=== PATIENT | male | born 1980 | race Caucasian/White ===

== ENCOUNTER 2016-06-30 19:55 | Emergency (ER) | payer BC ==
[~2016-06-30] VITALS: Ht 185.4 cm; Wt 91.7 kg
[~2016-06-30 19:55] MED LIST: CHANTIX1 MG PO; FIBER500 MG PO; FIORICET 50-301 EACH PO; FLEXERIL10 MG PO; LANSOPRAZOLE30 MG PO; LORTAB 5-325 M1 EACH PO; NAPROSYN500 MG PO; PHENERGAN-CODE120 ML PO; ZITHROMAX250 MG PO; ZOFRAN4 MG PO
[2016-06-30 20:54] LABS: HEMATOCRIT 41.4 % (38.0-50.0); MCH 30.6 PG (29.0-34.0); MCHC 34.8 G/DL (30.0-36.0); MCV 87.9 FL (86-99); MEAN PLAT.VOLUME 11.2 uM^3 (9.0-12.4); PLATELET COUNT 194 K/uL (156-360); RBC DIS.WIDTH-CV 12.5 % (11.8-14.6); RBC DIS.WIDTH-SD 40.7 % (39-53); RED BLOOD COUNT 4.71 M/uL (4.00-5.50); WHITE BLOOD COUNT 8.5 K/uL (4.1-10.2)
[2016-06-30 21:08] LABS: CHLORIDE 107 mEq/L (99-109); POTASSIUM 3.8 mEq/L (3.7-5.4); SODIUM 141 mEq/L (136-147)
[2016-06-30 21:10] LABS: GLUCOSE 96 mg/dL (70-99)
[2016-06-30 21:12] LABS: ANION GAP 11 MEQ/L (2-14); TOTAL BILIRUBIN 0.4 mg/dL (0.0-1.0)
[2016-06-30 21:14] LABS: ALKALINE PHOSPHATASE 94 IU/L (3-129); GFR ESTIMATE (CALCULATED) > 59 mL/min/
[2016-06-30 21:15] LABS: UREA NITROGEN (BUN) 9 mg/dL (9-23)
[2016-06-30 22:17] LABS: TROP-I INTERPRETATION NEGATIVE; TROPONIN-I < 0.01 ng/mL (0.0-0.30)
[2016-06-30 22:47] LABS: D-DIMER ELISA < 0.15 mg/L FEU (< 0.57)
[2016-06-30 23:15] LABS: TROP-I INTERPRETATION NEGATIVE; TROPONIN-I < 0.01 ng/mL (0.0-0.30)
[2016-07-01 00:04] VITALS: BP 147/82
[2016-07-02] MEDS ORDERED: FIBER TABS625 MG PO (23:21)
[2016-07-02] MEDS ORDERED: ADVIL,NUPRIN,M200 MG PO (23:22)
== END 2016-07-01 00:04 | disposition home or self-care (01) ==
LOC: EME 19:55
PROVIDERS: Emergency Medicine
DX: R07.9 Chest pain, unspecified (principal); K21.9 Gastro-esophageal reflux disease without esophagitis
CPT/HCPCS: 71020; 80053; 84484; 85027; 85379; 93005; 94640; 99281; 99285

== ENCOUNTER 2016-07-02 19:15 | Observation (INO) | payer BC ==
[~2016-07-02] VITALS: Ht 185.4 cm; Wt 91.6 kg
[2016-07-02 19:42] LABS: HEMATOCRIT 41.6 % (38.0-50.0); MCH 30.5 PG (29.0-34.0); MCHC 34.1 G/DL (30.0-36.0); MCV 89.5 FL (86-99); MEAN PLAT.VOLUME 11.3 uM^3 (9.0-12.4); PLATELET COUNT 185 K/uL (156-360); RBC DIS.WIDTH-CV 12.6 % (11.8-14.6); RBC DIS.WIDTH-SD 41.1 % (39-53); RED BLOOD COUNT 4.65 M/uL (4.00-5.50); WHITE BLOOD COUNT 7.2 K/uL (4.1-10.2)
[2016-07-02 19:53] LABS: CHLORIDE 107 mEq/L (99-109); POTASSIUM 3.6 mEq/L (3.7-5.4); SODIUM 141 mEq/L (136-147)
[2016-07-02 19:54] LABS: GLUCOSE 95 mg/dL (70-99)
[2016-07-02 19:56] LABS: ANION GAP 11 MEQ/L (2-14)
[2016-07-02 19:58] LABS: GFR ESTIMATE (CALCULATED) > 59 mL/min/
[2016-07-02 19:59] LABS: UREA NITROGEN (BUN) 9 mg/dL (9-23)
[2016-07-02 20:03] LABS: TROP-I INTERPRETATION NEGATIVE; TROPONIN-I < 0.01 ng/mL (0.0-0.30)
[2016-07-02] MEDS ORDERED: FIBER TABS625 MG PO (23:21)
[2016-07-02] MEDS ORDERED: ADVIL,NUPRIN,M200 MG PO (23:22)
[2016-07-03 01:10] VITALS: BP 118/82
[2016-07-03 04:13] LABS: TROP-I INTERPRETATION NEGATIVE; TROPONIN-I < 0.01 ng/mL (0.0-0.30)
[2016-07-03 04:29] VITALS: BP 117/72
[2016-07-03 04:41] LABS: HDL CHOLESTEROL 26 MG/DL (Desirable>=40); LDL CHOLESTEROL 46 mg/dL (Desirable<100); NON-HDL CHOLESTEROL 70 mg/dL (Desirable<160); TOTAL CHOLESTEROL 96 mg/dL (Desirable<200); TRIGLYCERIDES 120 MG/DL (Normal: <150)
[2016-07-03 09:40] VITALS: BP 121/83
[2016-07-03] MEDS ORDERED: ASPIR-LOW81 MG PO (10:58)
[2016-07-03 11:04] LABS: TROP-I INTERPRETATION NEGATIVE; TROPONIN-I < 0.01 ng/mL (0.0-0.30)
== END 2016-07-03 11:57 | disposition home or self-care (01) ==
LOC: EME 19:15 → EDOF 23:56 → 5WEST 07-03 01:00
PROVIDERS: Physician Assistant Medical
DX: R07.89 Other chest pain (principal); R06.02 Shortness of breath; K21.9 Gastro-esophageal reflux disease without esophagitis; M79.604 Pain in right leg; F32.9 Major depressive disorder, single episode, unspecified; F41.9 Anxiety disorder, unspecified; G89.29 Other chronic pain; R51 Headache; M54.41 Lumbago with sciatica, right side; Z87.891 Personal history of nicotine dependence
CPT/HCPCS: 71020; 71275; 80048; 80061; 83880; 84484; 85027; 93005; 93971; 99281; 99285; G0378; J7030